=== PATIENT | male | born 1975 | race Caucasian/White ===

== ENCOUNTER 2021-08-16 22:25 | Emergency (ER) | payer OTHER ==
[~2021-08-16] VITALS: Ht 172.7 cm; Wt 88.5 kg
[2021-08-16 22:36] VITALS: BP 143/76
== END 2021-08-17 01:14 | disposition left against medical advice (07) ==
LOC: ER 22:25
DX: R07.0 Pain in throat (principal); K21.9 Gastro-esophageal reflux disease without esophagitis; Z53.21 Procedure and treatment not carried out due to patient leaving prior to being seen by health care provider